=== PATIENT | female | born 1960 | race Caucasian/White ===

== ENCOUNTER 2020-10-06 07:36 | Emergency (ER) | payer BC ==
[2020-10-06] MEDS ORDERED: Bacitracin Oint 1 GM U/D Packet TOP ONE (08:10)
--- NOTE | 2020-10-06 08:10 | EDM.PDOC ---
ED HPI GENERAL MEDICAL PROBLEM - General Chief Complaint: Laceration Stated Complaint: CUT ON WRIST AT 8PM LAST NIGHT Time Seen by Provider: 10/06/20 08:01 Source of Information: Reports: Patient History Limitations: Reports: No Limitations - History of Present Illness INITIAL COMMENTS - FREE TEXT/NARRATIVE: 60-year-old female who is on chronic immunosuppressive drugs for rheumatoid arthritis but is otherwise generally healthy accidentally stabbed her left wrist with a knife last evening while trying to pry off a bottle top. She has a small laceration on the flexor surface of the left wrist ulnar side. There is surrounding bruising, no active bleeding. She has pain with movement of the fingers but no weakness or numbness. There was some brief tingling in the small finger after the accident but that is resolved. Onset: Sudden Duration: Hour(s): (About 12 hours ago) Location: Reports: Upper Extremity, Left Associated Symptoms: Reports: No Other Symptoms Left Hand Pain Score (Numeric/FACES): 4 - Related Data Allergies Allergy/AdvReac Type Severity Reaction Status Date / Time codeine Allergy Headache Verified 10/06/20 07:52 Home Meds: Home Meds Adalimumab [Humira Pen] 40 mg SQ ASDIRECTED 10/06/20 [History] Levothyroxine Sodium [Synthroid] 100 mcg PO DAILY 10/06/20 [History] Methotrexate 7.5 mg PO Q7D 10/06/20 [History] Pravastatin [Pravachol] 20 mg PO DAILY 10/06/20 [History] amLODIPine [Norvasc] 5 mg PO DAILY 10/06/20 [History] Past Medical History Musculoskeletal History: Reports: RA Endocrine/Metabolic History: Reports: Hypothyroidism - Infectious Disease History Infectious Disease History: Reports: Chicken Pox Social & Family History - Tobacco Use Tobacco Use Status *Q: Never Tobacco User - Caffeine Use Caffeine Use: Reports: Coffee - Recreational Drug Use Recreational Drug Use: No ED ROS GENERAL - Review of Systems Review Of Systems: See Below Constitutional: Denies: Fever, Chills HEENT: Reports: No Symptoms Respiratory: Reports: No Symptoms Cardiovascular: Reports: No Symptoms GI/Abdominal: Reports: No Symptoms Musculoskeletal: Reports: Other (Chronic rheumatoid arthritis, stable) Skin: Reports: Bruising (Some bruising has developed around the puncture wound) Neurological: Reports: Paresthesia (Initial paresthesias of the small finger left hand, now resolved) ED EXAM, SKIN/RASH Exam: See Below Exam Limited By: No Limitations General Appearance: Alert, No Apparent Distress Head: Atraumatic Respiratory/Chest: No Respiratory Distress Neurological: Alert, Oriented, Other (Sensation is intact to the fourth and fifth finger on the left hand) Psychiatric: Normal Affect, Normal Mood Skin: Warm, Dry, Other (Patient has a longitudinal 1 cm laceration on the ulnar aspect of the flexor surface of the wrist with some surrounding bruising. Minimal swelling and significant tenderness is present with palpation) Course - Vital Signs Last Recorded V/S: Last Vital Signs Temp 97.7 F 10/06/20 07:58 Pulse 59 L 10/06/20 07:58 Resp 16 10/06/20 07:58 BP 141/85 H 10/06/20 07:58 Pulse Ox 99 10/06/20 07:58 - Orders/Labs/Meds Meds: Medications Discontinued Medications Generic Name Dose Route Start Last Admin Trade Name Freq PRN Reason Stop Dose Admin Bacitracin 1 dose 10/06/20 08:10 10/06/20 08:14 Bacitracin Oint 1 Gm U/D Packet TOP 10/06/20 08:11 1 dose ONETIME ONE Administration - Re-Assessments/Exams Free Text/Narrative Re-Assessment/Exam: 10/06/20 08:14 Patient's tetanus status is current, the wound was cleaned, a small spot of bacitracin applied and a moderate pressure dressing with Coban was placed on the wrist. Because of her immunosuppression medications and the possibility of a injury to the tendon sheath, she will be put on cephalexin 500 3 times a day for at least the next 3 to 5 days. She was encouraged to increase activity as tolerated. Departure - Departure Time of Disposition: 08:25 Disposition: Home, Self-Care 01 Clinical Impression: Laceration of left wrist Qualifiers: Encounter type: initial encounter Qualified Code(s): S61.512A - Laceration without foreign body of left wrist, initial encounter - Discharge Information Instructions: Puncture Wound, [id number] Referrals: PCP,None [Primary Care Provider] - Forms: ED Department Discharge Care Plan Goals: Keep wound covered and clean while healing, and increase activity as tolerated. Antibiotic 3 times a day will prevent infection, take at least 3 to 4 days. Recheck at any time if concerns of infection or not healing satisfactorily. Sepsis Event Note (ED) - Evaluation Sepsis Screening Result: No Definite Risk - Focused Exam Vital Signs: Vital Signs Temp Pulse Resp BP Pulse Ox 10/06/20 07:58 97.7 F 59 L 16 141/85 H 99
== END 2020-10-06 08:25 | disposition home or self-care (01) ==
LOC: JP.ED 07:36
DX: S61.512A Laceration without foreign body of left wrist, initial encounter (principal); M06.9 Rheumatoid arthritis, unspecified; E03.9 Hypothyroidism, unspecified; Z88.5 Allergy status to narcotic agent; Z79.899 Other long term (current) drug therapy; W26.0XXA Contact with knife, initial encounter
CPT/HCPCS: 99282